=== PATIENT | male | born 2000 | race Two or more races ===

== ENCOUNTER 2024-06-04 21:46 | Emergency (ER) | payer SELFPAY ==
[~2024-06-04] VITALS: Ht 170.2 cm; Wt 95.3 kg
[2024-06-04 23:53] VITALS: BP 147/103; O2SAT 99
[2024-06-04] MEDS ORDERED: TDAP DIPH,PERTUSS,TET VAC/PF 0.5 ML DISP.SYRIN IM ONE (23:55)
[2024-06-05] MEDS: TDAP DIPH,PERTUSS,TET VAC/PF 0.5 ML DISP.SYRIN IM ONE (00:01)
== END 2024-06-05 00:02 | disposition home or self-care (01) ==
LOC: ER 21:52
DX: S91.131A Puncture wound without foreign body of right great toe without damage to nail, initial encounter (principal); J45.909 Unspecified asthma, uncomplicated; Z23 Encounter for immunization; W22.09XA Striking against other stationary object, initial encounter; Y93.89 Activity, other specified; Y92.098 Other place in other non-institutional residence as the place of occurrence of the external cause; Y99.8 Other external cause status
CPT/HCPCS: 90715; A4606; A4663